=== PATIENT | male | born 1970 | race Caucasian/White ===

== ENCOUNTER 2017-06-11 20:25 | Emergency (ER) | payer BC ==
--- NOTE | 2017-06-11 20:39 | PDOC ---
Rapid Medical Evaluation Time Seen by Provider: 06/11/17 20:30 Medical Evaluation: 06/11/17 20:38 I have performed a brief in-person evaluation of this patient. The patient presents with a chief complaint of: hx NIDDM, HTN, L leg pain x 3 days, "a little red at first got really bad today", pain to L calf when bending leg Pertinent physical exam findings: erythema to LLE I have ordered the following: CBC. CMP, d-dimer, x-ray The patient will proceed to the ED for further evaluation. Discharge Disposition - Diagnosis Cellulitis - Referrals - Patient Instructions - Post Discharge Activity
[2017-06-11 20:52] LABS: BASOPHIL 1.2 % (0-2.0); EOSINOPHIL 1.9 % (0-4.5); MCH 27.1 pg (25.7-33.7); MCHC 33.1 g/dl (32.0-35.9); MEAN CELL VOLUME 81.9 fl (80-96); MEAN PLT VOLUME 7.8 fl (7.5-11.1); NEUTROPHILS 59.4 % (42.8-82.8); PLATELET COUNT 290 K/MM3 (134-434); RDW 15.3 % (11.9-15.9); WHITE BLOOD COUNT 11.3 K/mm3 (4.0-10.0)
[2017-06-11 21:17] VITALS: TEMP 98.8; BMI 57.4
[2017-06-11 21:17] LABS: ALBUMIN 3.5 g/dl (3.4-5.0); ANION GAP 5 (8-16); CALCIUM 8.5 mg/dL (8.5-10.1); CO2 32 mmol/L (21-32); CREATININE 0.9 mg/dL (0.7-1.3); GLUCOSE,RANDOM 93 mg/dL (74-106); SGOT/AST 29 U/L (15-37); SGPT/ALT 45 U/L (12-78)
[2017-06-11 21:19] LABS: ALK PHOS 76 U/L (45-117); BILIRUBIN,TOTAL 0.6 mg/dL (0.2-1.0); TOT PROT 7.7 g/dl (6.4-8.2)
--- NOTE | 2017-06-11 22:35 | PDOC ---
History of Present Illness - General Exam Limitations: No Limitations - History of Present Illness Initial Comments: 06/11/17 22:36 46 year old male, with significant past medical history of borderline diabetic and HTN, who presents to the emergency room today complaining of left calf pain with increased redness to the left anterior carter over the past 3 days. The patient states that the pain is exacerbated with ambulation, but is able to ambulate with difficulty. His family reports that the patient had 1 episode of cellulitis about 6 months ago, for which he was on doxycycline. Allergies: avolox 06/11/17 23:47 <Addis Aquino - Last Filed: 06/11/17 23:46> - General History Source: Patient <Jonathon Katz - Last Filed: 06/11/17 23:48> - General Chief Complaint: Pain Stated Complaint: PAIN Time Seen by Provider: 06/11/17 20:30 Past History <Addis Aquino - Last Filed: 06/11/17 23:46> - Past Medical History COPD: No Diabetes: Yes HTN: Yes - Suicide/Smoking/Psychosocial Hx Smoking History: Never smoked Have you smoked in the past 12 months: No Information on smoking cessation initiated: No Hx Alcohol Use: No Drug/Substance Use Hx: No Substance Use Type: None <Jonathon Katz - Last Filed: 06/11/17 23:48> - Past Medical History Allergies/Adverse Reactions: Allergies Allergy/AdvReac Type Severity Reaction Status Date / Time No Known Allergies Allergy Verified 06/11/17 21:15 Home Medications: Ambulatory Orders Doxycycline Hyclate [Vibramycin -] 100 mg PO BID #20 cap 06/11/17 Review of Systems - Review of Systems Able to Perform ROS?: Yes Comments:: 06/11/17 22:36 CONSTITUTIONAL: Absent: fever, no chills, no fatigue EYES: Absent: visual changes ENT: Absent: ear pain, no sore throat CARDIOVASCULAR: Absent: chest pain, no palpitations RESPIRATORY: Absent: cough, no SOB GI: Absent: abdominal pain, no nausea, no vomiting, no constipation, no diarrhea GENITOURINARY: Absent: dysuria, no frequency, no hematuria MUSCULOSKELETAL: Present: left calf pain and redness. Absent: back pain, no arthralgia, no myalgia SKIN: Absent: rash <Addis Aquino - Last Filed: 06/11/17 23:46> *Physical Exam - Vital Signs Last Vital Signs Temp Pulse Resp BP Pulse Ox 98.8 F 83 18 136/76 96 06/11/17 20:25 06/11/17 20:25 06/11/17 20:25 06/11/17 20:25 06/11/17 20:25 - Physical Exam Comments: 06/11/17 22:37 GENERAL: Well-appearing, well-nourished. No apparent distress. HEENT: Normocephalic, atraumatic. PERRL, EOM intact. CARDIOVASCULAR: Normal S1, S2. Regular rate and rhythm. PULMONARY: Clear to auscultation bilaterally. ABDOMEN: Morbidly obese, Soft, non-distended, non-tender. EXTREMITIES: bronchiectasis changes to both LE from bilateral knees down. The LLE is erythematous, but no increased warmth. No calf tenderness SKIN: Warm, dry. No rash NEUROLOGICAL: No focal neurological deficits. <Addis Aquino - Last Filed: 06/11/17 23:46> - Vital Signs Last Vital Signs Temp Pulse Resp BP Pulse Ox 98.8 F 83 18 136/76 96 06/11/17 20:25 06/11/17 20:25 06/11/17 20:25 06/11/17 20:25 06/11/17 20:25 <Jonathon Katz - Last Filed: 06/11/17 23:48> ED Treatment Course - LABORATORY CBC & Chemistry Diagram: 06/11/17 20:40 06/11/17 20:40 - ADDITIONAL ORDERS Additional order review: Laboratory Results 06/11/17 06/11/17 20:40 20:40 D-Dimer 207 Sodium 136 Potassium 3.5 Chloride 99 Carbon Dioxide 32 Anion Gap 5 L BUN 14 Creatinine 0.9 Creat Clearance w eGFR > 60 Random Glucose 93 Calcium 8.5 Total Bilirubin 0.6 AST 29 ALT 45 Alkaline Phosphatase 76 Total Protein 7.7 Albumin 3.5 06/11/17 20:40 RBC 5.01 MCV 81.9 MCHC 33.1 RDW 15.3 MPV 7.8 Neutrophils % 59.4 Lymphocytes % 30.0 Monocytes % 7.5 Eosinophils % 1.9 Basophils % 1.2 <Addis Aquino - Last Filed: 06/11/17 23:46> - LABORATORY CBC & Chemistry Diagram: 06/11/17 20:40 06/11/17 20:40 - ADDITIONAL ORDERS Additional order review: Laboratory Results 06/11/17 06/11/17 20:40 20:40 D-Dimer 207 Sodium 136 Potassium 3.5 Chloride 99 Carbon Dioxide 32 Anion Gap 5 L BUN 14 Creatinine 0.9 Creat Clearance w eGFR > 60 Random Glucose 93 Calcium 8.5 Total Bilirubin 0.6 AST 29 ALT 45 Alkaline Phosphatase 76 Total Protein 7.7 Albumin 3.5 06/11/17 20:40 RBC 5.01 MCV 81.9 MCHC 33.1 RDW 15.3 MPV 7.8 Neutrophils % 59.4 Lymphocytes % 30.0 Monocytes % 7.5 Eosinophils % 1.9 Basophils % 1.2 - RADIOLOGY Radiology Studies Ordered: Category Date Time Status DUPLEX VASCUL US-1 LEG [US] Stat Ultrasound 06/11/17 22:22 Ordered <Jonathon Katz - Last Filed: 06/11/17 23:48> Medical Decision Making - Medical Decision Making 06/11/17 23:31 Dr. Katz: The scribe's documentation has been prepared under my direction and personally reviewed by me in its entirery. I confirm that the note above accurately reflects all work, treatment, procedures, and medical decision making performed by me. The left lower extremity duplex is negative for DVT. patient to be discharged to follow up with your his pcp. <Jonathon Katz - Last Filed: 06/11/17 23:48> *DC/Admit/Observation/Transfer - Attestations Scribe Attestion: 06/11/17 22:37 Documentation prepared by YENI Strickland, acting as medical aides teacher for Jonathon Katz MD. <Addis Aquino - Last Filed: 06/11/17 23:46> - Discharge Dispostion Admit: No <Jonathon Katz - Last Filed: 06/11/17 23:48> Diagnosis at time of Disposition: Cellulitis - Discharge Dispostion Disposition: HOME Condition at time of disposition: Stable - Prescriptions Prescriptions: Doxycycline Hyclate [Vibramycin -] 100 mg PO BID #20 cap - Referrals Referrals: STAFF,NOT ON [Primary Care Provider] - Matt Aden MD [Staff Physician] - Gaby Marie MD [Staff Physician] - - Patient Instructions Printed Discharge Instructions: DI for Cellulitis -- Adult Additional Instructions: Please follow up with your doctor or the doctor referred to you. TAke medication as directed. Return if any problems. - Post Discharge Activity Forms/Work/School Notes: Back to Work
[2017-06-11] MEDS ORDERED: LEVOFLOXACIN 500 MG TABLET (FP) PO ONE (23:28)
[2017-06-11] MEDS ORDERED: DOXYCYCLINE HYCLATE 100 MG CAPSULE PO ONE (23:46)
[2017-06-12 00:04] VITALS: BP 143/71; PULSE 84
[2017-06-12] MEDS ORDERED: DOXYCYCLINE HYCLATE 100 MG CAPSULE PO ONE (00:07)
== END 2017-06-12 00:10 | disposition home or self-care (01) ==
LOC: JER 20:25
DX: L03.116 Cellulitis of left lower limb (principal); I10 Essential (primary) hypertension; E11.9 Type 2 diabetes mellitus without complications
CPT/HCPCS: 36415; 73590-TC-LT; 80053; 85025; 85379; 93971-TC; 99281-25